=== PATIENT | female | born 1995 | race Hispanic/Latino ===

== ENCOUNTER 2021-09-01 13:56 | Emergency (ER) | payer BC ==
[~2021-09-01] VITALS: Ht 157.5 cm; Wt 68.0 kg
[2021-09-01 13:58] VITALS: BP 135/83
[2021-09-01] MEDS ORDERED: ONDA4TAB10 PO (16:59)
== END 2021-09-01 17:36 | disposition home or self-care (01) ==
LOC: EDH 13:56
DX: U07.1 COVID-19 (principal); Z79.899 Other long term (current) drug therapy
CPT/HCPCS: 87635; 87804 ×2; 99283; C9803